=== PATIENT | male | born 1950 | race Caucasian/White ===

== ENCOUNTER → 2017-06-29 | Outpatient (CLI) | payer MEDICARE, BC ==
[~2017-06-29] MED LIST: ACETAMINOPHEN650 M1 PO; AGGRENOX PO; ASPIRIN81 M1 PO; BUSPAR5 M1 PO; CHOLESTEROL MED; CYANOCOBAL1000 MCG/M INJ; CYMBALTA PO; DYAZIDE 37.5/251 CAP PO; FLEXERIL PO; FLEXERIL10 MG PO; HYDROCODON-ACE1 EAC4 PO; HYDROCODON-ACE1 EAC5 PO; LEXAPRO PO; LO-DOSE ASPIRIN81 M1 PO; LORTAB 10-5001 EACH PO; LORTAB 7.5-5001 TAB PO; METOPROLOL TAR25 MG PO; MEVACOR10 MG PO; MEVACOR40 MG PO; NIACIN250 M1 PO; PERCOCET7.5 PO; PLAVIX PO; PREVACID PO; PROTONIX PO; PV NEURO VITE T1 TAB PO; TESTOSTERONE IJ; TOPROL XL PO; TRIAMTERENE-HC1 EAC1 PO; ZOLOFT PO
[2017-06-29 17:20] LABS: POC - CREATININE 1.4 mg/dL (0.64-1.27)
== END | disposition home or self-care (01) ==
LOC: SMRI 16:16
PROVIDERS: Family Medicine
DX: M79.601 Pain in right arm (principal); R20.0 Anesthesia of skin
CPT/HCPCS: 82565

== ENCOUNTER → 2017-07-03 | Outpatient (CLI) | payer MEDICARE, BC ==
--- NOTE | ~2017-07-03 | MR31 ---
[facility] A Service of [facility] RADIOLOGY TEXT RESULTS PATIENT: KIKI CHILDRESS LOCATION: [facility] : 48 UNIT #: [id number] AGE: [address]: King Dykes MD SEX: M ORDER DR: [id number] [address] [address] [id number] O MR#: [id number] Acc #: [id number] NAME: KIKI CHILDRESS : 1950 SEX: M STUDY DATE/TIME: 07/03/2017 16:25 UNIT: [facility] ROOM: STUDY DESCRIPTION: MR Cervical WWo Contrast Attending Physician: King Dykes M.D. Referring Physician: King Dykes M.D. Ordering Physician: King Dykes M.D. Primary Care Physician: King Dykes M.D. MRI CENTER REPORT This report is preliminary unless electronic signature is present. EXAM MRI of the cervical spine with and without contrast dated 07/03/2017. COMPARISON Plain film cervical spine dated 18:17. HISTORY Increasing neck pain for 2 years, worse in the last 3 months with right upper extremity radiculopathy. Right hand and finger numbness. TECHNIQUE Multisequence multiplanar imaging of the cervical spine was obtained with and without contrast. eGFR measured 54. 20 mL of MultiHance was administered intravenously. FINDINGS There is loss of normal cervical curvature. Disc osteophyte complex are noted at multiple levels, worst at C3-4. No bone edema. There is severe canal stenosis with cord compression at the level of C3-4, C4-5 and to a lesser degree at C5-6 and C6-7. There is cord flattening without obvious cord signal change yet. It is worst at C3-4. Imaged posterior fossa and craniovertebral junction are unremarkable. C2-3: Disc osteophyte complex with mild left and vkip-xm-fuuhhelb right facet hypertrophic change. Nqlru-wd-tisl central protrusion is seen. There is right uncinate spur with mild right neural foraminal narrowing. Mild canal stenosis. C3-4: Disc osteophyte complex which is asymmetrically prominent in the wprie-sg-brru subarticular region suggestive of superimposed moderate broad-based protrusion. Severe canal stenosis is noted with cord compression. No cord signal change yet. Severe bilateral neural foraminal narrowing. [facility] A Service of [facility] RADIOLOGY TEXT RESULTS PATIENT: KIKI CHILDRESS LOCATION: [facility] : 48 UNIT #: [id number] AGE: [address]: King Dykes MD SEX: M ORDER DR: C4-5: Disc osteophyte complex which is asymmetrically prominent in the zuqtw-uy-qtwp subarticular region. It causes severe canal stenosis, severe bilateral neural foraminal narrowing, worse on the left. C5-6: Disc osteophyte complex with bilateral uncinate spurs, akxuppcw-zd-abiwot canal stenosis, severe bilateral neural foraminal narrowing and mild bilateral facet changes. C6-7: Disc osteophyte complex which is asymmetrically prominent in the noijs-yo-eckx subarticular region suggestive of superimposed broad-based protrusion. It is particularly prominent in the center. Severe bilateral neural foraminal narrowing, worse on the left. C7-T1: Disc osteophyte complex with superimposed left central to subarticular broad-based disc protrusion with likely an extruded component in the left central region. There is moderate canal stenosis without cord compression. Severe bilateral neural foraminal narrowing is suspected. Disc osteophyte complex are also noted in the thoracic spine with mild T1-2: dkoo-km-bcpotmcm T2-3 and T3-4 canal stenosis. There is likely superimposed central to right foraminal broad-based protrusion with an extruded component in the right subarticular region. Axial was not obtained. At T3-4, there is a left subarticular to foraminal moderate protrusion, worse on the left subarticular region suspicious for an extrusion. Bilateral neural foraminal narrowing are noted, worst at T2-3. IMPRESSION 1. Significant degenerative changes are noted at multiple levels of the cervical spine as described above. 2. It is worst at C3-4 followed by C4-5 with severe canal stenosis and severe bilateral neural foraminal narrowing. Cord compression is noted without obvious cord signal change yet. 3. Degenerative changes are also noted in the thoracic spine, worst at T2-3. Protrusions and extrusions are suspected with canal stenosis and neural foraminal narrowing in the visualized upper thoracic spine, worst at T2-3. 4. Postcontrast sequences do not demonstrate enhancing cord mass or new findings other than above. Dictated by... Garland Cronin M.D. THIS IS AN ELECTRONICALLY VERIFIED REPORT Garland Cronin M.D. at 07/05/2017 10:38 AM CPR/pcl TD: 07/04/2017 16:50 [facility]. [facility] A Service of [facility] RADIOLOGY TEXT RESULTS PATIENT: KIKI CHILDRESS LOCATION: [facility] : 48 UNIT #: [id number] AGE: [address]: King Dykes MD SEX: M ORDER DR: HIRAM #: [id number] MRI CENTER REPORT Page 1 of 1
== END | disposition home or self-care (01) ==
LOC: SMRI 16:14
DX: R20.0 Anesthesia of skin (principal); M79.601 Pain in right arm; M47.892 Other spondylosis, cervical region; M48.02 Spinal stenosis, cervical region; M99.81 Other biomechanical lesions of cervical region; G95.20 Unspecified cord compression; M47.894 Other spondylosis, thoracic region
CPT/HCPCS: 72156; A9581